=== PATIENT | male | born 1960 | race African-American/Black ===

== ENCOUNTER 2024-10-05 09:41 | Inpatient (IN) | payer MEDICAID ==
[~2024-10-05] VITALS: Ht 175.3 cm; Wt 74.8 kg
[2024-10-05] MEDS: MORPHINE SULFATE 4 MG/ML INJ (FOR IV/IM USE) IV ONE (10:10)
[2024-10-05 10:52] LABS: HEMATOCRIT. 39.8 % (42.0-52.0); HEMOGLOBIN. 12.5 g/dL (14.0-18.0); MEAN CORPUSCULAR HEMOGLOBIN 20.5 pg (28.0-32.0); MEAN CORPUSCULAR HGB CONC 31.4 g/dL (31.0-37.0); MEAN CORPUSCULAR VOLUME 65.2 fL (80.0-94.0); MEAN PLATELET VOLUME 9.3 fl (7.4-10.4); PLATELET 326 x1000/uL (130-400); RED BLOOD CELL COUNT 6.09 mill/uL (4.7-6.1); RED CELL DISTRIBUTION WIDTH 24.8 % (11.6-14.6); WHITE BLOOD COUNT 11.3 x1000/uL (4.5-11.0)
[2024-10-05 10:54] LABS: DIFFERENTIAL COMMENT 1
[2024-10-05 10:57] LABS: CHLORIDE 105 mEq/L (98-107); POTASSIUM 4.8 mEq/L (3.5-5.1); SODIUM 134 mEq/L (136-145)
[2024-10-05 10:58] LABS: CALCIUM 9.5 mg/dL (8.7-10.4); CARBON DIOXIDE 20 mEq/L (21-32)
[2024-10-05 11:03] LABS: CREATININE 1.7 mg/dL (0.6-1.3); GLUCOSE 115 mg/dL (70-105); UREA NITROGEN BLOOD 20 mg/dL (9-23)
[2024-10-05 11:04] LABS: TROPONIN I HIGH SENSITIVITY 5 ng/L (3.0-53)
[2024-10-05 11:15] LABS: ANISOCYTOSIS 3+; HYPOCHROMASIA 2+; MICROCYTOSIS 3+; TARGET CELLS 1+
[2024-10-05 11:16] LABS: GIANT PLATELETS 2+; PLATELET ESTIMATE NORMAL
[2024-10-05 12:16] LABS: TROPONIN I HIGH SENSITIVITY 6 ng/L (3.0-53)
[2024-10-05] MEDS ORDERED: ACETAMINOPHEN 325MG TABLET PO PRN (13:00)
[2024-10-05] MEDS ORDERED: IPRATROPIUM/ALBUTEROL 0.5-3(2.5)MG/3ML NEB HHN PRN (13:00)
[2024-10-05] MEDS ORDERED: DOCUSATE SODIUM 100MG CAPSULE PO PRN (13:00)
[2024-10-05 14:00] VITALS: BP 197/87; PULSE 51; RESP 15; RESP 18; TEMP 37.1; O2SAT 98
[2024-10-05] MEDS ORDERED: NALOXONE HCL 0.4MG/ML VIAL IV PRN (14:00)
[2024-10-05] MEDS: HYDRALAZINE 20MG/ML VIAL IV PRN (14:32)
[2024-10-05] MEDS ORDERED: IOHEXOL-350 100 ML BOTTLE ONE (14:45)
[2024-10-05 16:00] VITALS: BP_SYST 176; BP_DIAS 71; BP_DIAS 79; PULSE 55; RESP 20; TEMP 35.9; O2SAT 99
[2024-10-05 16:14] LABS: POTASSIUM 4.1 mEq/L (3.5-5.1)
[2024-10-05 16:15] LABS: CALCIUM 9.5 mg/dL (8.7-10.4)
[2024-10-05 16:20] LABS: CREATININE 1.6 mg/dL (0.6-1.3)
[2024-10-05] MEDS: ONDANSETRON HCL 4MG/2ML INJ IV PRN (16:44)
[2024-10-05 20:00] VITALS: BP 144/65; PULSE 62; RESP 19; TEMP 36.4; O2SAT 98
[2024-10-05 21:03] LABS: TOTAL IRON BINDING CAPACITY 451 ug/dl (250-425)
[2024-10-05 21:19] LABS: IRON 34 ug/dL (65-175)
[2024-10-05] MEDS: HYDRALAZINE HCL 25MG TABLET PO SCH (21:27)
[2024-10-05] MEDS: NIFEDIPINE XL 30MG TAB PO SCH (21:27)
[2024-10-05] MEDS: MAGNESIUM/ALUMINUM HYDROXIDE/SIMETHICONE 30ML UDC PO PRN (21:30)
[2024-10-05] MEDS ORDERED: CLONIDINE 0.1MG TABLET PO SCH (22:00)
[2024-10-06] VITALS: BP 145/71; PULSE 61; RESP 18; TEMP 36.5; O2SAT 97
[2024-10-06 00:32] LABS: CREATINE KINASE 175 IU/L (46-171)
[2024-10-06 04:00] VITALS: BP 148/74; PULSE 62; RESP 18; TEMP 36.4; O2SAT 98
[2024-10-06 08:14] LABS: HEMATOCRIT. 41.4 % (42.0-52.0); HEMOGLOBIN. 13.1 g/dL (14.0-18.0); MEAN CORPUSCULAR HEMOGLOBIN 20.7 pg (28.0-32.0); MEAN CORPUSCULAR HGB CONC 31.7 g/dL (31.0-37.0); MEAN CORPUSCULAR VOLUME 65.2 fL (80.0-94.0); PLATELET 311 x1000/uL (130-400); RED BLOOD CELL COUNT 6.35 mill/uL (4.7-6.1); RED CELL DISTRIBUTION WIDTH 24.8 % (11.6-14.6); WHITE BLOOD COUNT 12.1 x1000/uL (4.5-11.0)
[2024-10-06 08:22] LABS: CARBON DIOXIDE 22 mEq/L (21-32); CHLORIDE 104 mEq/L (98-107); POTASSIUM 4.2 mEq/L (3.5-5.1); SODIUM 134 mEq/L (136-145)
[2024-10-06 08:23] LABS: CALCIUM 9.5 mg/dL (8.7-10.4)
[2024-10-06 08:28] LABS: CREATININE 1.4 mg/dL (0.6-1.3); DIFFERENTIAL COMMENT 1; GLUCOSE 118 mg/dL (70-105); TRIGLYCERIDE 118 mg/dL (0-150); UREA NITROGEN BLOOD 13 mg/dL (9-23)
[2024-10-06 08:29] LABS: ALBUMIN 4.4 g/dL (3.2-4.8); LDL CHOLESTEROL 107 mg/dL (5-100)
[2024-10-06 08:30] LABS: CHOLESTEROL 213 mg/dL (<200); HDL CHOLESTEROL 105 mg/dL (>55)
[2024-10-06 08:31] LABS: T4 FREE 1.11 ng/dL (0.89-1.76)
[2024-10-06 08:32] LABS: THYROID STIMULATING HORMONE 1.13 uIU/mL (0.55-4.78)
[2024-10-06] MEDS ORDERED: AMLODIPINE 5MG TABLET PO SCH (09:00)
[2024-10-06] MEDS: GUAIFENESIN 200MG/10ML SUGAR FREE UDC PO PRN (10:07)
[2024-10-06] MEDS: AMLODIPINE 5MG TABLET PO SCH (10:07)
[2024-10-06] MEDS: PANTOPRAZOLE SODIUM 40 MG/VIAL IV SCH (10:07)
[2024-10-06 12:00] VITALS: BP 105/66; PULSE 64; RESP 18; TEMP 36.7; O2SAT 100
[2024-10-06 13:17] LABS: ALANINE AMINOTRANSFERASE < 7 IU/L (10-49); ALBUMIN 4.3 g/dL (3.2-4.8); ASPARTATE AMINOTRANSFERASE 18 IU/L (<34); BILIRUBIN DIRECT < 0.1 mg/dL (<=3.0); BILIRUBIN TOTAL 0.3 mg/dL (0.1-1.0); PHOSPHORUS 3.4 mg/dL (2.5-4.9); PROTEIN TOTAL 7.1 g/dL (6.0-8.3)
[2024-10-06 13:43] LABS: ANISOCYTOSIS 4+; MICROCYTOSIS 3+; PLATELET ESTIMATE NORMAL
[2024-10-06] MEDS: HYDRALAZINE HCL 50MG TABLET PO SCH (14:45)
[2024-10-06 16:00] VITALS: BP 134/83; PULSE 66; RESP 18; TEMP 36.8; O2SAT 100
[2024-10-06] MEDS ORDERED: HYDR50TA39 PO (16:52)
[2024-10-06] MEDS ORDERED: AMLO5TAB88 PO (16:52)
[2024-10-06] MEDS: SODIUM CHLORIDE 0.9% 500 ML IV ONE (17:23)
[2024-10-06] MEDS: ENOXAPARIN 40MG/0.4ML SYR SUBCUT SCH (17:23)
[2024-10-06 20:00] VITALS: BP_SYST 128; BP_SYST 136; BP_DIAS 76; BP_DIAS 91; PULSE 66; PULSE 68; RESP 18; TEMP 36.3; TEMP 36.4; O2SAT 97
[2024-10-06] MEDS: ATORVASTATIN CALCIUM 40MG TABLET PO SCH (21:20)
[2024-10-06] MEDS: HYDROCODONE/ACETAMINOPHEN 5/325MG TABLET PO PRN (21:23)
[2024-10-07] VITALS: BP_SYST 108; BP_SYST 136; BP_DIAS 65; BP_DIAS 91; PULSE 66; PULSE 78; RESP 18; TEMP 36.4; TEMP 36.6; O2SAT 97
[2024-10-07 04:00] VITALS: BP 108/65; PULSE 78; RESP 18; TEMP 36.6; O2SAT 97
[2024-10-07 08:00] VITALS: BP 136/82; PULSE 74; RESP 18; TEMP 36.6; O2SAT 99
[2024-10-07 11:49] VITALS: BP 135/78; PULSE 64; RESP 18; TEMP 36.8; O2SAT 100
[2024-10-07 12:00] VITALS: BP 135/75; PULSE 64; RESP 18; TEMP 36.8; O2SAT 100
[2024-10-07 13:07] LABS: HEMATOCRIT. 41.1 % (42.0-52.0); HEMOGLOBIN. 13.3 g/dL (14.0-18.0); MEAN CORPUSCULAR HEMOGLOBIN 21.2 pg (28.0-32.0); MEAN CORPUSCULAR HGB CONC 32.3 g/dL (31.0-37.0); MEAN CORPUSCULAR VOLUME 65.5 fL (80.0-94.0); MEAN PLATELET VOLUME 9.4 fl (7.4-10.4); PLATELET 308 x1000/uL (130-400); RED BLOOD CELL COUNT 6.28 mill/uL (4.7-6.1); RED CELL DISTRIBUTION WIDTH 24.8 % (11.6-14.6); WHITE BLOOD COUNT 9.5 x1000/uL (4.5-11.0)
[2024-10-07 13:09] LABS: CARBON DIOXIDE 24 mEq/L (21-32); CHLORIDE 103 mEq/L (98-107); POTASSIUM 4.2 mEq/L (3.5-5.1); SODIUM 135 mEq/L (136-145)
[2024-10-07 13:10] LABS: CALCIUM 9.1 mg/dL (8.7-10.4)
[2024-10-07 13:11] LABS: DIFFERENTIAL COMMENT 1
[2024-10-07 13:14] LABS: TROPONIN I HIGH SENSITIVITY 9 ng/L (3.0-53)
[2024-10-07 13:15] LABS: CREATININE 1.5 mg/dL (0.6-1.3); GLUCOSE 96 mg/dL (70-105); TRIGLYCERIDE 125 mg/dL (0-150); UREA NITROGEN BLOOD 10 mg/dL (9-23)
[2024-10-07 13:16] LABS: LDL CHOLESTEROL 93 mg/dL (5-100)
[2024-10-07 13:17] LABS: CHOLESTEROL 219 mg/dL (<200); HDL CHOLESTEROL 95 mg/dL (>55)
[2024-10-07 13:18] LABS: THYROID STIMULATING HORMONE 3.02 uIU/mL (0.55-4.78)
[2024-10-07 13:50] LABS: ANISOCYTOSIS 4+; MICROCYTOSIS 3+; PLATELET ESTIMATE NORMAL; TARGET CELLS 1+
[2024-10-07 14:12] VITALS: BP 121/75; PULSE 85; TEMP 98; O2SAT 99
== END 2024-10-07 15:00 | disposition home or self-care (01) | DRG 243 ==
LOC: ER 09:41 → 6WST 11:53
PROVIDERS: ADMIT Hospitalist; ATTEND Hospitalist
DX: K21.9 Gastro-esophageal reflux disease without esophagitis (principal); N17.9 Acute kidney failure, unspecified; E87.1 Hypo-osmolality and hyponatremia; D50.9 Iron deficiency anemia, unspecified; F12.90 Cannabis use, unspecified, uncomplicated; D72.829 Elevated white blood cell count, unspecified; I16.1 Hypertensive emergency; R00.1 Bradycardia, unspecified; N28.1 Cyst of kidney, acquired; E78.00 Pure hypercholesterolemia, unspecified; F17.210 Nicotine dependence, cigarettes, uncomplicated; J98.11 Atelectasis; I10 Essential (primary) hypertension; Z79.899 Other long term (current) drug therapy
CPT/HCPCS: 36415; 71045; 71275; 74021; 76705; 76770; 80048; 80061; 80076; 82040; 82550; 83540; 83550; 83735; 83880; 84100; 84439; 84443; 84484; 85025; 85379; 93005; 93306; 93880; 93970; 97161; 97166; 99285; J0360; J1650; J2270; J2405; J2470; Q9967